=== PATIENT | female | born 1980 | race Two or more races ===

== ENCOUNTER 2022-10-13 19:36 | Emergency (ER) | payer OTHER ==
[~2022-10-13] VITALS: Ht 185.4 cm; Wt 72.6 kg
[2022-10-13] MEDS ORDERED: SUBOXONE 2 MG-1 EACH (20:07)
== END 2022-10-14 04:19 | disposition home or self-care (01) ==
LOC: ER 19:36
DX: N39.0 Urinary tract infection, site not specified (principal)